=== PATIENT | male | born 1990 | race African-American/Black ===

== ENCOUNTER 2017-06-21 08:05 | Emergency (ER) | payer OTHER ==
[2017-06-21 08:56] VITALS: TEMP 98.2; BMI 26.4
--- NOTE | 2017-06-21 09:19 | PDOC ---
History of Present Illness - General History Source: Patient Exam Limitations: No Limitations - History of Present Illness Initial Comments: 06/21/17 09:26 26 y/o M with no PMHx presents to the ED with intermittent abdominal pain for 7 months. Patient rates the pain at a 7/10 and describes it as cramping, that is alleviated with sleep or after a bowel movement. Patient reports that during episodes of the pain, he usually has associated nausea, vomiting, and diarrhea. Today he only reports diarrhea, which alleviated the pain. Episodes last a few days to a couple weeks at a time. He saw his GI doctor, who told him to cut out meat to see if it resolved the pain. However, patient reports no food changes help. He states he no longer eats meat or dairy products. He denies burning in his chest or sour taste in the back of his mouth. He was scheduled for a colonoscopy a few months ago, but the patient canceled his appointment and has not rescheduled. He denies bloody stool. Denies fever, chills. Denies chest pain , SOB. FHx: gastric ulcers, GI issues SHx: Marijuana use daily, no alcohol use [employer] P[employer] Operator: Dr. Niko Yanez <Macy Orellana - Last Filed: 06/21/17 09:26> <Adilene Ferrell - Last Filed: 06/21/17 11:20> - General Chief Complaint: Pain Stated Complaint: ABD PAIN Time Seen by Provider: 06/21/17 08:19 Past History <Macy Orellana - Last Filed: 06/21/17 09:26> - Past Medical History Other medical history: denies - Psycho/Social/Smoking Cessation Hx Anxiety: No Suicidal Ideation: No Smoking Status: No Smoking History: Never smoked Have you smoked in the past 12 months: No Number of Cigarettes Smoked Daily: 0 Information on smoking cessation initiated: No Hx Alcohol Use: No Drug/Substance Use Hx: Yes Substance Use Type: Marijuana <Adilene Ferrell - Last Filed: 06/21/17 11:20> - Past Medical History Allergies/Adverse Reactions: Allergies Allergy/AdvReac Type Severity Reaction Status Date / Time No Known Allergies Allergy Verified 09/08/12 17:37 Home Medications: Ambulatory Orders NK [No Known Home Medication] 06/21/17 Review of Systems - Review of Systems Able to Perform ROS?: Yes Comments:: 06/21/17 09:27 GENERAL/CONSTITUTIONAL: No fever or chills. No weakness. HEAD, EYES, EARS, NOSE AND THROAT: No change in vision. No ear pain or discharge. No sore throat. CARDIOVASCULAR: No chest pain or shortness of breath. RESPIRATORY: No cough, wheezing, or hemoptysis. GASTROINTESTINAL: (+) abdominal pain, diarrhea. No recent nausea, vomiting. GENITOURINARY: No dysuria, frequency, or change in urination. MUSCULOSKELETAL: No joint or muscle swelling or pain. No neck or back pain. SKIN: No rash NEUROLOGIC: No headache, vertigo, loss of consciousness, or change in strength/ sensation. ENDOCRINE: No increased thirst. No abnormal weight change. HEMATOLOGIC/LYMPHATIC: No anemia, easy bleeding, or history of blood clots. ALLERGIC/IMMUNOLOGIC: No hives or skin allergy. <Macy Orellana - Last Filed: 06/21/17 09:26> *Physical Exam - Vital Signs Last Vital Signs Temp Pulse Resp BP Pulse Ox 98.2 F 67 20 108/71 99 06/21/17 08:09 06/21/17 08:09 06/21/17 08:09 06/21/17 08:09 06/21/17 08:09 - Physical Exam Comments: 06/21/17 09:27 GENERAL: Awake, alert, and fully oriented, in no acute distress HEAD: No signs of trauma EYES: PERRLA, EOMI, sclera anicteric, conjunctiva clear ENT: Auricles normal inspection, hearing grossly normal, nares patent, oropharynx clear without exudates. Moist mucosa NECK: Normal ROM, supple, no lymphadenopathy, JVD, or masses LUNGS: Breath sounds equal, clear to auscultation bilaterally. No wheezes, and no crackles HEART: Regular rate and rhythm, normal S1 and S2, no murmurs, rubs or gallops ABDOMEN: Soft, nontender, normoactive bowel sounds. No guarding, no rebound. No masses EXTREMITIES: Normal range of motion, no edema. No clubbing or cyanosis. No cords, erythema, or tenderness NEUROLOGICAL: Cranial nerves II through XII grossly intact. Normal speech, normal gait SKIN: Warm, Dry, normal turgor, no rashes or lesions noted. <Macy Orellana - Last Filed: 06/21/17 09:26> - Vital Signs Last Vital Signs Temp Pulse Resp BP Pulse Ox 98.2 F 67 20 108/71 99 06/21/17 08:09 06/21/17 08:09 06/21/17 08:09 06/21/17 08:09 06/21/17 08:09 <Adilene Ferrell - Last Filed: 06/21/17 11:20> ED Treatment Course - LABORATORY CBC & Chemistry Diagram: 06/21/17 09:17 06/21/17 09:17 <Adilene Ferrell - Last Filed: 06/21/17 11:20> Medical Decision Making - Medical Decision Making 06/21/17 09:58 a/p: 26yo male with intermittent episodes of n/v/d and abd pain x 6 months. -hx of seeing GI in the past, supposed to undergo colonoscopy for further eval -no pain at this time -abd soft, nonacute, will check labs and reassess -has appt with GI for july 12 -pt has cancelled multiple GI visits over the last 6 months 06/21/17 11:18 re-eval: pt pain free in the ED. Discussed all lab results with the patient. Discussed mildly decreased wbc and plts. Pt will follow up with Dr. Ornelas (GI) on July 12. Recommeded follow up with PMD for repeat lab work. Pt verbalizes understanding of all instructions. Recommended pt keep a journal of dietary intake the daily - and try and assoc marijuana use/food induced cause of pain. Answered all questions. Pt stable for d/c to home. Discussed all reasons to return to the ED. <Adilene Ferrell - Last Filed: 06/21/17 11:20> *DC/Admit/Observation/Transfer - Attestations Scribe Attestion: 06/21/17 09:27 Documentation prepared by Macy Orellana, acting as medical consultant for Adilene Ferrell DO. <Macy Orellana - Last Filed: 06/21/17 09:26> - Discharge Dispostion Admit: No - Attestations Physician Attestion: 06/21/17 11:20 I, Dr. Adilene Kurkowski, DO, attest that this document has been prepared under my direction and personally reviewed by me in its entirety. I further attest, that it accurately reflects all work, treatment, procedures and medical decision -making performed by me. <Adilene Ferrell - Last Filed: 06/21/17 11:20> Diagnosis at time of Disposition: Abdominal pain in male, Diarrhea - Discharge Dispostion Disposition: HOME Condition at time of disposition: Stable - Referrals Referrals: Joyce Mercedes MD [Primary Care Provider] - - Patient Instructions Printed Discharge Instructions: DI for Abdominal Pain-Adult Additional Instructions: Please follow up with your GI specialist as scheduled on July 12. Please follow up with your PMD. Please return to the ED with any further concerns.
[2017-06-21 09:51] LABS: URINE APPEARANCE SLCLOUDY; URINE BILIRUBIN NEGATIVE (NEGATIVE); URINE BLOOD NEGATIVE (NEGATIVE); URINE COLOR DKYELLOW; URINE GLUCOSE (UA) NEGATIVE (NEGATIVE); URINE KETONE TRACE (NEGATIVE); URINE LEUK ESTERASE NEGATIVE (NEGATIVE); URINE NITRITE NEGATIVE (NEGATIVE); URINE PROTEIN NEGATIVE (NEGATIVE); URINE UROBILINOGEN NEGATIVE mg/dL (0.2-1.0)
[2017-06-21 09:53] LABS: BASOPHIL 0.6 % (0-2.0); EOSINOPHIL 3.1 % (0-4.5); MCH 28.5 pg (25.7-33.7); MCHC 33.2 g/dl (32.0-35.9); MEAN CELL VOLUME 85.8 fl (80-96); MEAN PLT VOLUME 10.9 fl (7.5-11.1); NEUTROPHILS 49.4 % (42.8-82.8); PLATELET COUNT 134 K/MM3 (134-434); RDW 13.8 % (11.9-15.9); WHITE BLOOD COUNT 3.7 K/mm3 (4.0-10.0)
[2017-06-21 10:14] LABS: ALBUMIN 3.8 g/dl (3.4-5.0); ANION GAP 5 (8-16); BILIRUBIN,TOTAL 1.1 mg/dL (0.2-1.0); CALCIUM 9.2 mg/dL (8.5-10.1); CO2 30 mmol/L (21-32); CREATININE 0.8 mg/dL (0.7-1.3); GLUCOSE,RANDOM 104 mg/dL (74-106); MAGNESIUM 1.9 mg/dL (1.8-2.4); SGOT/AST 16 U/L (15-37); SGPT/ALT 23 U/L (12-78); TOT PROT 6.8 g/dl (6.4-8.2)
[2017-06-21 10:15] LABS: ALK PHOS 69 U/L (45-117)
[2017-06-21 11:28] VITALS: BP 131/75; PULSE 58
== END 2017-06-21 11:28 | disposition home or self-care (01) ==
LOC: JER 08:05
DX: R10.84 Generalized abdominal pain (principal); R19.7 Diarrhea, unspecified
CPT/HCPCS: 36415; 80053; 81003; 83690; 83735; 85025; 99283-25

== ENCOUNTER 2019-12-03 20:02 | Emergency (ER) | payer OTHER ==
[2019-12-03 20:06] VITALS: BP 138/81; PULSE 72; TEMP 98.3; BMI 25.8
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
== END 2019-12-03 21:42 | disposition home or self-care (01) ==
LOC: JERFT 20:02
DX: S46.812A Strain of other muscles, fascia and tendons at shoulder and upper arm level, left arm, initial encounter (principal); S80.01XA Contusion of right knee, initial encounter; V44.6XXA Car passenger injured in collision with heavy transport vehicle or bus in traffic accident, initial encounter; Y92.414 Local residential or business street as the place of occurrence of the external cause; Y93.89 Activity, other specified; Y99.8 Other external cause status
CPT/HCPCS: 99283-25

== ENCOUNTER 2022-06-26 09:57 | Inpatient (IN) | payer OTHER ==
[2022-06-26] MEDS ORDERED: ONDANSETRON 4 MG/2 ML VIAL IVPUSH ONE (10:18)
[2022-06-26] MEDS ORDERED: ACETAMINOPHEN 1000 MG/100 ML BAG IVPB ONE (10:18)
[2022-06-26] MEDS ORDERED: SODIUM CHLORIDE 0.9% 1000 ML INFUS.BAG IV ONE ×2 (10:18→13:14)
[2022-06-26] MEDS ORDERED: HALOPERIDOL LACTATE 5 MG/ML IV ONE (10:26)
[2022-06-26] MEDS ORDERED: HALOPERIDOL LACTATE 5 MG/ML IM ONE (10:37)
[2022-06-26] MEDS ORDERED: LORazepam 2 MG/ML SDV VIAL IVPB ONE (10:38)
[2022-06-26] MEDS ORDERED: ONDANSETRON 4 MG/2 ML VIAL ONE (10:41)
[2022-06-26] MEDS ORDERED: ACETAMINOPHEN INJECTION 100 ML IVPB ONE (10:41)
[2022-06-26] MEDS ORDERED: HALOPERIDOL LACTATE 5 MG/ML ONE (10:41)
[2022-06-26 11:11] LABS: ALBUMIN 6.1 g/dl (3.4-5.0); BILIRUBIN,TOTAL 1.7 mg/dl (0.2-1); CALCIUM 10.9 mg/dl (8.5-10); CREATININE 3.5 mg/dl (0.55-1.3); TOT PROT 9.7 g/dl (6.4-8.2)
[2022-06-26 11:53] LABS: HEMATOCRIT 47.9 % (35.4-49); MCHC 35.4 g/dl (32.0-35.9); MEAN CELL VOLUME 84.7 fl (80-96); MEAN PLT VOLUME 11.5 fl (7.5-11.1); PLATELET COUNT 162.4 10^3/uL (134-434); RBC 5.65 10^6/uL (4.00-5.60); RDW 14.5 % (11.9-15.9); WHITE BLOOD COUNT 9.3 10^3/uL (4.0-10.8)
[2022-06-26 11:57] LABS: PLATELET ESTIMATE ADEQUATE
[2022-06-26] MEDS ORDERED: LORazepam 1 MG TABLET PO PRN (15:08)
[2022-06-26] MEDS ORDERED: SODIUM CHLORIDE 1,000 ML IV SCH (15:15)
[2022-06-26 16:07] LABS: CALCIUM 8.3 mg/dl (8.5-10); CREATININE 2.3 mg/dl (0.55-1.3)
[2022-06-26] MEDS: ACETAMINOPHEN 325 MG TABLET (FP) PO PRN ×2 (17:34→22:40)
[2022-06-26 18:01] VITALS: BMI 23.6
[2022-06-26 18:38] LABS: URIC ACID CRYSTALS 1+ /hpf (NONE SEEN)
[2022-06-26 20:10] LABS: COCAINE, UR NEGATIVE (NEGATIVE); METHADONE, UR NEGATIVE (NEGATIVE); OPIATES, URI NEGATIVE (NEGATIVE); URINE BARBITURATES NEGATIVE (NEGATIVE)
[2022-06-26 20:11] LABS: PHENCYCLIDINE,URINE NEGATIVE (NEGATIVE); URINE BENZODIAZEPINES NEGATIVE (NEGATIVE)
[2022-06-26 20:12] LABS: URINE AMPHETAMINES NEGATIVE (NEGATIVE)
[2022-06-26] MEDS: OLANZapine 2.5 MG TABLET PO SCH (22:41)
[2022-06-27 07:46] LABS: HEMATOCRIT 36.6 % (35.4-49); HEMOGLOBIN 12.6 G/dL (11.7-16.9); MCH 29.6 pg (25.7-33.7); MCHC 34.3 g/dl (32.0-35.9); MEAN CELL VOLUME 86.1 fl (80-96); MEAN PLT VOLUME 11.1 fl (7.5-11.1); PLATELET COUNT 103.3 10^3/uL (134-434); RBC 4.25 10^6/uL (4.00-5.60); RDW 14.1 % (11.9-15.9); WHITE BLOOD COUNT 6.2 10^3/uL (4.0-10.8)
[2022-06-27] MEDS: ONDANSETRON *ODT* 4 MG TABLET SL PRN (09:26)
[2022-06-27] MEDS: ACETAMINOPHEN 325 MG TABLET (FP) PO PRN ×2 (10:34→21:34)
[2022-06-27 13:17] LABS: ALBUMIN 3.7 g/dl (3.4-5.0); BILIRUBIN,TOTAL 1.3 mg/dl (0.2-1); CALCIUM 8.6 mg/dl (8.5-10)
[2022-06-27 13:47] LABS: ALBUMIN 3.9 g/dl (3.4-5.0); BILIRUBIN,TOTAL 1.5 mg/dl (0.2-1); CALCIUM 8.8 mg/dl (8.5-10); CREATININE 0.8 mg/dl (0.55-1.3); TOT PROT 6.4 g/dl (6.4-8.2)
[2022-06-27] MEDS: SODIUM CHLORIDE 1,000 ML with POTASSIUM CHLORIDE 10 MEQ IV SCH (14:58)
[2022-06-27] MEDS: OLANZapine 2.5 MG TABLET PO SCH (21:19)
[2022-06-28 08:44] LABS: ALBUMIN 3.6 g/dl (3.4-5.0); BILIRUBIN,TOTAL 1.4 mg/dl (0.2-1); CALCIUM 8.8 mg/dl (8.5-10); CREATININE 0.8 mg/dl (0.55-1.3); TOT PROT 5.9 g/dl (6.4-8.2)
[2022-06-28] MEDS: ACETAMINOPHEN 325 MG TABLET (FP) PO PRN ×2 (08:48→14:32)
[2022-06-28] MEDS: ONDANSETRON *ODT* 4 MG TABLET SL PRN (08:49)
[2022-06-28 09:29] VITALS: RESP 17; TEMP 98.9
[2022-06-28 14:06] VITALS: BP 139/84; PULSE 43
[2022-06-28] MEDS: SODIUM CHLORIDE 1,000 ML with POTASSIUM CHLORIDE 10 MEQ IV SCH (14:33)
== END 2022-06-28 15:00 | disposition home or self-care (01) | DRG 469 ==
LOC: FER 09:57 → FM/S 13:15
PROVIDERS: ADMIT Family Medicine; ATTEND Family Medicine
DX: N17.9 Acute kidney failure, unspecified (principal); E87.1 Hypo-osmolality and hyponatremia; E83.52 Hypercalcemia; F11.10 Opioid abuse, uncomplicated; F12.188 Cannabis abuse with other cannabis-induced disorder; R11.2 Nausea with vomiting, unspecified
CPT/HCPCS: 0241U-QW; 36415; 76775-TC; 80048; 80053; 80307; 81003; 81015; 82570; 84156; 85025; 85027; 93005; 93010; 99285-25; Q0162

== ENCOUNTER 2022-09-19 11:58 | Emergency (ER) | payer OTHER ==
[2022-09-19 12:08] VITALS: BP 124/83; PULSE 73; RESP 16; TEMP 98.4; BMI 22.3
[2022-09-19] MEDS ORDERED: guaiFENesin/CODEINE 10 ML UNIT-DOSE CUPS PO ONE (12:31)
[2022-09-19] MEDS ORDERED: guaiFENesin/CODEINE 10 ML UNIT-DOSE CUPS ONE (12:49)
[2022-09-19 14:19] LABS: THROAT:GRP A STREP NOT DETECTED (NOTDETECTED)
== END 2022-09-19 13:53 | disposition home or self-care (01) ==
LOC: FER 11:58
DX: R05.9 Cough, unspecified (principal)
CPT/HCPCS: 0241U-QW; 71046-TC-FY; 87651; 99284-25

== ENCOUNTER 2024-04-03 07:54 | Emergency (ER) | payer OTHER ==
[2024-04-03 08:01] VITALS: BP 135/90; PULSE 74; RESP 18; TEMP 98.5; BMI 23.7
[2024-04-03 11:47] LABS: SYPHILIS W/ RPR CONF NON-REACTIVE (NONREACTIVE)
[2024-04-03 12:16] LABS: HIV INTERPRETATION NEGATIVE (NEGATIVE)
== END 2024-04-03 09:04 | disposition home or self-care (01) ==
LOC: JERFT 07:54
DX: Z11.3 Encounter for screening for infections with a predominantly sexual mode of transmission (principal)
CPT/HCPCS: 36415; 86695; 86696; 86780; 87389; 87491; 87591; 87661; 99283-25

== ENCOUNTER 2024-06-15 12:32 | Emergency (ER) | payer OTHER ==
[2024-06-15 12:43] VITALS: BP 129/90; PULSE 78; RESP 18; TEMP 98.6; BMI 34.2
[2024-06-15] MEDS: SODIUM CHLORIDE 1,000 ML IV STA (12:45)
[2024-06-15] MEDS ORDERED: ONDANSETRON 4 MG/2 ML VIAL ONE (12:48)
[2024-06-15] MEDS: ONDANSETRON 4 MG/2 ML VIAL IVPUSH ONE (12:50)
[2024-06-15 13:10] LABS: HEMATOCRIT 45.2 % (35.4-49); MCHC 33.1 g/dl (32.0-35.9); MEAN CELL VOLUME 87.6 fl (80-96); MEAN PLT VOLUME 10.7 fl (7.5-11.1); PLATELET COUNT 142.5 10^3/uL (134-434); RBC 5.16 10^6/uL (4.00-5.60); RDW 14.1 % (11.9-15.9); WHITE BLOOD COUNT 5.7 10^3/uL (4.0-10.8)
[2024-06-15 13:21] LABS: PLATELET ESTIMATE ADEQUATE
[2024-06-15 13:29] LABS: ANION GAP 10 mmol/L (4-13); CALCIUM 10.4 mg/dl (8.5-10.1); CHLORIDE 104 mmol/L (98-107); CO2 28 mmol/L (21-32); GLUCOSE,RANDOM 99 mg/dl (74-106); POTASSIUM 3.9 mmol/L (3.5-5.1); SODIUM 142 mmol/L (136-145)
== END 2024-06-15 14:00 | disposition home or self-care (01) ==
LOC: FER 12:32
PROC: 3E033GC Introduction of Other Therapeutic Substance into Peripheral Vein, Percutaneous Approach (ICD-10-PCS; principal; 2024-06-15)
PROC: 3E0337Z Introduction of Electrolytic and Water Balance Substance into Peripheral Vein, Percutaneous Approach (ICD-10-PCS; 2024-06-15)
DX: R11.2 Nausea with vomiting, unspecified (principal); R19.7 Diarrhea, unspecified
CPT/HCPCS: 36415; 80048; 85027; 99284-25

== ENCOUNTER 2025-03-27 14:44 | Emergency (ER) | payer OTHER ==
[2025-03-27 14:54] VITALS: BP 143/76; PULSE 105; RESP 16; TEMP 98.1; BMI 24.3
[2025-03-27] MEDS ORDERED: DOXYCYCLINE HYCLATE 100 MG CAPSULE PO ONE (15:00)
[2025-03-27] MEDS ORDERED: IBUPROFEN 400 MG TABLET (FP) PO ONE (15:01)
[2025-03-27] MEDS: DOXYCYCLINE HYCLATE 100 MG CAPSULE PO ONE (15:15)
[2025-03-27] MEDS: IBUPROFEN 400 MG TABLET (FP) PO ONE (15:15)
[2025-03-27 15:49] LABS: EPITHELIAL CELLS 0-5 /hpf
[2025-03-27 15:50] LABS: URINE MUCUS FEW
[2025-03-27 19:06] LABS: HCV DIAGNOSTIC IN-HOUSE W/RFLX NON-REACTIVE (NONREACTIVE); HIV INTERPRETATION NEGATIVE (NEGATIVE)
== END 2025-03-27 17:00 | disposition home or self-care (01) ==
LOC: FER 14:44
DX: N45.2 Orchitis (principal); N50.811 Right testicular pain
CPT/HCPCS: 36415; 76870-TC; 81003; 81015; 86780; 86803; 87389; 87491; 87591; 87661; 99285-25